=== PATIENT | male | born 1975 | race Caucasian/White ===

== ENCOUNTER 2016-10-02 21:40 | Emergency (ER) | payer OTHER ==
[~2016-10-02] VITALS: Ht 185.4 cm; Wt 114.3 kg
[2016-10-02 21:47] VITALS: BP 153/108
== END 2016-10-02 22:32 | disposition home or self-care (01) ==
LOC: ED 21:40
DX: J30.9 Allergic rhinitis, unspecified (principal); I10 Essential (primary) hypertension; R09.81 Nasal congestion; R22.0 Localized swelling, mass and lump, head; Z79.899 Other long term (current) drug therapy

== ENCOUNTER 2017-08-12 22:20 | Emergency (ER) | payer OTHER ==
[~2017-08-12] VITALS: Ht 185.4 cm; Wt 116.3 kg
[2017-08-12 23:02] VITALS: BP 141/87; Ht 185.4 cm; Wt 116.3 kg
== END 2017-08-12 23:58 | disposition left against medical advice (07) ==
LOC: ED 22:20
DX: Z53.21 Procedure and treatment not carried out due to patient leaving prior to being seen by health care provider (principal)